=== PATIENT | male | born 1955 | race African-American/Black ===

== ENCOUNTER 2019-08-24 15:41 | Emergency (ER) | payer MEDICAID, MEDICARE ==
[2019-08-24] MEDS ORDERED: Adacel (T-DAP) 0.5 ML SYRINGE ONE (16:00)
[2019-08-24] MEDS ORDERED: Clindamycin 300 MG/2 ML VIAL ONE (16:27)
== END 2019-08-24 16:54 | disposition home or self-care (01) ==
LOC: SCSER 15:41
DX: L02.414 Cutaneous abscess of left upper limb (principal); L03.114 Cellulitis of left upper limb; I10 Essential (primary) hypertension; F41.9 Anxiety disorder, unspecified; Z23 Encounter for immunization
CPT/HCPCS: 90471; 90715; 96372; 99283; J3490

== ENCOUNTER 2019-08-27 03:45 | Emergency (ER) | payer MEDICARE | END 2019-08-27 04:43 | disposition home or self-care (01) | LOC: ERS 03:45 | DX: Z48.817 Encounter for surgical aftercare following surgery on the skin and subcutaneous tissue (principal); I10 Essential (primary) hypertension; F41.9 Anxiety disorder, unspecified; Z79.899 Other long term (current) drug therapy | CPT/HCPCS: 99282 ==

== ENCOUNTER 2022-06-11 18:42 | Inpatient (IN) | payer MEDICARE ==
[~2022-06-11 18:42] MED LIST: Iopamidol-370 76% 500 ML 1 ML ONE
[2022-06-11 19:58] LABS: Amphetamine Detected (NotDetected); Barbiturates Screen Not Detected (NotDetected); Benzodiazepine Screen Not Detected (NotDetected); Cocaine Metabolite Screen Not Detected (NotDetected); Methadone Not Detected (NotDetected); Methamphetamine Detected (NotDetected); Opiate Screen Detected (NotDetected); Oxycodone Screen Not Detected (NotDetected); Phencyclidine (PCP) Not Detected (NotDetected); THC/Cannabinoid Screen Detected (NotDetected); Tricyclic Screen Not Detected (NotDetected)
[2022-06-11 20:22] LABS: Alcohol Less than 20 mg/dL (Less than 10)
[2022-06-11 20:25] LABS: Acetaminophen Less than 12.0 mcg/mL (10.0-30.0); Salicylate Less than 16.0 mg/dL (15.0-30.0)
[2022-06-11] MEDS ORDERED: Acetaminophen 325 MG TAB PO PRN (20:39)
[2022-06-11] MEDS ORDERED: Ondansetron PF 4 MG/2 ML Vial IVP PRN (20:39)
[2022-06-11 21:07] LABS: #Eosinphils 0.1 thou/uL (0.0-0.7); #Lymphocytes 1.9 thou/uL (1.20-3.40); #Monocytes 0.9 thou/uL (0.11-0.59); #Neutrophils 8.7 thou/uL (1.40-6.50); %Basophils 0.3 % (0.0-1.0); %Eosinophils 0.5 % (0.0-10.0); %Lymphocytes 16.5 % (21.0-51.0); %Monocytes 7.5 % (0.0-10.0); %Neutrophils 75.3 % (42.0-75.0); Mean Corpuscular HGB CONC 32.6 g/dL (32.0-36.0); Mean Corpuscular Hemoglobin 30.1 pg (27.0-31.0); Mean Corpuscular Volume 92.5 fL (78.0-98.0); Mean Platelet Volume 6.1 fL (7.4-10.4); Platelet Count 552 thou/uL (130-400); RBC Distribution Width 12.4 % (11.5-14.5); Red Blood Cell (RBC) Count 4.33 mill/uL (4.70-6.10); White Blood Cell (WBC) Count 11.6 thou/uL (4.8-10.8)
[2022-06-11] MEDS ORDERED: hydrALAZINE 20 MG/ML VIAL SLOW IVP PRN (21:11)
[2022-06-12 00:15] VITALS: BMI 29.7
[2022-06-12] MEDS: Sodium Chloride 0.9% 1,000 ML IV SCH ×2 (01:55→11:10)
[2022-06-12 04:33] LABS: #Eosinphils 0.1 thou/uL (0.0-0.7); #Lymphocytes 1.7 thou/uL (1.20-3.40); #Monocytes 0.7 thou/uL (0.11-0.59); %Eosinophils 0.4 % (0.0-10.0); %Lymphocytes 14.9 % (21.0-51.0); %Monocytes 6.5 % (0.0-10.0); %Neutrophils 78.2 % (42.0-75.0); Hemoglobin 10.7 g/dL (14.0-18.0); Mean Corpuscular HGB CONC 32.9 g/dL (32.0-36.0); Mean Corpuscular Hemoglobin 30.3 pg (27.0-31.0); Platelet Count 551 thou/uL (130-400); RBC Distribution Width 12.3 % (11.5-14.5); Red Blood Cell (RBC) Count 3.54 mill/uL (4.70-6.10); White Blood Cell (WBC) Count 11.5 thou/uL (4.8-10.8)
[2022-06-12 04:58] LABS: Anion Gap 15 mmol/L (10-20); BUN (Urea Nitrogen) 19 mg/dL (8.4-25.7); Calc. Creatinine Clearance 156 mL/min (70-130); Calcium 8.2 mg/dL (7.8-10.44); Carbon Dioxide 29 mmol/L (23-31); Chloride 96 mmol/L (98-107); Estimated GFR 103; Glucose 90 mg/dL (80-115); Potassium 3.8 mmol/L (3.5-5.1); Sodium 136 mmol/L (136-145)
[2022-06-12] MEDS ORDERED: CEFAZOLIN 2 GM in Sodium Chloride 0.9% 100 ML IVPB SCH (08:15)
[2022-06-12] MEDS: Pantoprazole 40 MG VIAL IVP SCH ×2 (08:37→21:38)
[2022-06-12 09:05] LABS: SARS-CoV-2 NAA Rapid Test Not Detected (NotDetected)
[2022-06-12] MEDS ORDERED: fentaNYL Citrate/PF 100 MCG/2 ML SYRINGE ONE ×2 (09:51→11:55)
[2022-06-12] MEDS ORDERED: HYDROmorphone 0.5 MG/0.5 ML SYRINGE ONE (09:52)
[2022-06-12] MEDS ORDERED: Bupivacaine/Epinephrine 0.25% 30 ML VIAL ONE (11:10)
[2022-06-12] MEDS ORDERED: SUGAMMADEX SODIUM 200 MG/2 ML VIAL ONE ×2 (11:56→12:09)
[2022-06-12] MEDS ORDERED: Famotidine/PF 20 mg/2ml Vial ONE (11:56)
[2022-06-12] MEDS ORDERED: cefOXitin 2 GM VIAL ONE (12:03)
[2022-06-12] MEDS ORDERED: Sodium Chloride 0.9% 100 ML ONE (12:03)
[2022-06-12] MEDS ORDERED: CEFAZOLIN 2 GM VIAL ONE (12:04)
[2022-06-12] MEDS ORDERED: Metoclopramide HCl 10 MG/2 ML VIAL ONE (12:22)
[2022-06-12] MEDS ORDERED: ePHEDrine 50 MG/ML VIAL ONE (12:22)
[2022-06-12] MEDS ORDERED: Succinylcholine 200 MG/10 ml SYRINGE FS ONE (12:22)
[2022-06-12] MEDS ORDERED: PROPOFOL 200 MG/20 ML VIAL ONE (12:22)
[2022-06-12] MEDS ORDERED: Ondansetron PF 4 MG/2 ML Vial ONE (12:22)
[2022-06-12] MEDS ORDERED: Lidocaine 1% MPF 2 ML VIAL ONE (12:22)
[2022-06-12] MEDS ORDERED: Ketorolac Tromethamine 30 MG/ML VIAL ONE (12:22)
[2022-06-12] MEDS ORDERED: Dexamethasone 20 MG/5 ML VIAL ONE (12:22)
[2022-06-12] MEDS ORDERED: Phenylephrine 10 MG/ML VIAL ONE (12:22)
[2022-06-12] MEDS ORDERED: Promethazine HCl 25 MG/ML VIAL IM PRN (13:26)
[2022-06-12] MEDS ORDERED: Promethazine HCl 25 MG/ML VIAL IVPB PRN (13:26)
[2022-06-12] MEDS ORDERED: Meperidine HCl/PF 25 MG/ML VIAL SLOW IVP PRN (13:26)
[2022-06-12] MEDS ORDERED: Ondansetron HCl/PF 4 MG/2 ML Vial IVP PRN (13:26)
[2022-06-12] MEDS ORDERED: HYDROcodone/Acetaminophen 7.5/325 mg Tablet PO PRN (13:35)
[2022-06-12] MEDS ORDERED: Morphine 2 MG/ML VIAL SLOW IVP PRN (13:35)
[2022-06-12 14:28] LABS: Hemoglobin 11.6 g/dL (14.0-18.0)
[2022-06-12] MEDS: Morphine 4 MG/ML VIAL SLOW IVP PRN (21:41)
[2022-06-12 21:56] LABS: Hemoglobin 11.3 g/dL (14.0-18.0)
[2022-06-13 04:39] LABS: #Lymphocytes 1.5 thou/uL (1.20-3.40); #Neutrophils 9.3 thou/uL (1.40-6.50); %Basophils 0.1 % (0.0-1.0); %Eosinophils 0.3 % (0.0-10.0); %Lymphocytes 12.7 % (21.0-51.0); %Monocytes 8.6 % (0.0-10.0); %Neutrophils 78.3 % (42.0-75.0); Hemoglobin 9.8 g/dL (14.0-18.0); Mean Corpuscular Hemoglobin 29.4 pg (27.0-31.0); Mean Corpuscular Volume 91.6 fL (78.0-98.0); Mean Platelet Volume 5.9 fL (7.4-10.4); Platelet Count 551 thou/uL (130-400); RBC Distribution Width 12.3 % (11.5-14.5); Red Blood Cell (RBC) Count 3.34 mill/uL (4.70-6.10); White Blood Cell (WBC) Count 11.9 thou/uL (4.8-10.8)
[2022-06-13 04:53] LABS: Anion Gap 13 mmol/L (10-20); BUN (Urea Nitrogen) 23 mg/dL (8.4-25.7); Calc. Creatinine Clearance 125 mL/min (70-130); Carbon Dioxide 29 mmol/L (23-31); Chloride 97 mmol/L (98-107); Estimated GFR 96; Glucose 126 mg/dL (80-115); Sodium 135 mmol/L (136-145)
[2022-06-13] MEDS: Morphine 4 MG/ML VIAL SLOW IVP PRN ×2 (05:08→20:02)
[2022-06-13] MEDS: HYDROcodone/Acetaminophen 7.5/325 mg Tablet PO PRN (09:28)
[2022-06-13] MEDS: Pantoprazole 40 MG VIAL IVP SCH ×2 (09:28→20:02)
[2022-06-13 14:15] LABS: Hemoglobin 10.4 g/dL (14.0-18.0)
[2022-06-13 23:14] LABS: Hemoglobin 11.3 g/dL (14.0-18.0)
[2022-06-14 04:46] LABS: #Eosinphils 0.1 thou/uL (0.0-0.7); #Lymphocytes 2.1 thou/uL (1.20-3.40); #Monocytes 0.8 thou/uL (0.11-0.59); #Neutrophils 8.3 thou/uL (1.40-6.50); %Basophils 0.1 % (0.0-1.0); %Eosinophils 0.9 % (0.0-10.0); %Lymphocytes 18.4 % (21.0-51.0); %Monocytes 6.8 % (0.0-10.0); %Neutrophils 73.8 % (42.0-75.0); Hemoglobin 11.7 g/dL (14.0-18.0); Mean Corpuscular HGB CONC 32.7 g/dL (32.0-36.0); Mean Corpuscular Hemoglobin 30.8 pg (27.0-31.0); Mean Corpuscular Volume 94.1 fL (78.0-98.0); Platelet Count 585 thou/uL (130-400); RBC Distribution Width 12.2 % (11.5-14.5); Red Blood Cell (RBC) Count 3.78 mill/uL (4.70-6.10); White Blood Cell (WBC) Count 11.2 thou/uL (4.8-10.8)
[2022-06-14 04:57] LABS: Anion Gap 15 mmol/L (10-20); BUN (Urea Nitrogen) 12 mg/dL (8.4-25.7); Calc. Creatinine Clearance 152 mL/min (70-130); Calcium 8.3 mg/dL (7.8-10.44); Carbon Dioxide 27 mmol/L (23-31); Chloride 98 mmol/L (98-107); Estimated GFR 101; Glucose 111 mg/dL (80-115); Potassium 3.8 mmol/L (3.5-5.1); Sodium 136 mmol/L (136-145)
[2022-06-14] MEDS: HYDROcodone/Acetaminophen 7.5/325 mg Tablet PO PRN (08:24)
[2022-06-14] MEDS: Pantoprazole 40 MG VIAL IVP SCH (08:26)
[2022-06-14] MEDS: Morphine 4 MG/ML VIAL SLOW IVP PRN (20:03)
[2022-06-14 20:23] VITALS: BP 174/83; TEMP 98.5
== END 2022-06-14 20:41 | disposition home or self-care (01) | DRG 350 ==
LOC: ERS 18:42 → 2NO 20:39
PROVIDERS: ADMIT Internal Medicine; ATTEND Internal Medicine
PROC: 0D9670Z Drainage of Stomach with Drainage Device, Via Natural or Artificial Opening (ICD-10-PCS; principal; 2022-06-11)
PROC: 0YU50JZ Supplement Right Inguinal Region with Synthetic Substitute, Open Approach (ICD-10-PCS; 2022-06-12)
PROC: 0DJ08ZZ Inspection of Upper Intestinal Tract, Via Natural or Artificial Opening Endoscopic (ICD-10-PCS; 2022-06-12)
DX: K40.30 Unilateral inguinal hernia, with obstruction, without gangrene, not specified as recurrent (principal); K21.01 Gastro-esophageal reflux disease with esophagitis, with bleeding; K44.0 Diaphragmatic hernia with obstruction, without gangrene; G89.29 Other chronic pain; M54.9 Dorsalgia, unspecified; F41.9 Anxiety disorder, unspecified; I10 Essential (primary) hypertension; B19.20 Unspecified viral hepatitis C without hepatic coma; I73.9 Peripheral vascular disease, unspecified; Z96.651 Presence of right artificial knee joint; Z20.822 Contact with and (suspected) exposure to COVID-19; F17.210 Nicotine dependence, cigarettes, uncomplicated; Z83.3 Family history of diabetes mellitus; F15.10 Other stimulant abuse, uncomplicated; F10.10 Alcohol abuse, uncomplicated; F11.10 Opioid abuse, uncomplicated; F12.10 Cannabis abuse, uncomplicated; Z71.51 Drug abuse counseling and surveillance of drug abuser; Z98.1 Arthrodesis status; Z98.890 Other specified postprocedural states; Z79.899 Other long term (current) drug therapy
CPT/HCPCS: 36415; 70450; 71045; 71275; 74018; 80048; 80306; 80307; 85025; 86850; 86900; 86901; 93923; 93970; C1781; C9113; J0690; J0694; J1100; J1170; J1885; J2270; J2370; J2405; J2704; J2765; J3490; J7050; Q9967; S0028; U0002